=== PATIENT | female | born 1970 | race African-American/Black ===

== ENCOUNTER 2019-01-18 09:53 | Inpatient (IN) | payer MEDICAID, OTHER ==
[~2019-01-18] VITALS: Ht 182.9 cm; Wt 89.8 kg
[2019-01-18 10:42] LABS: BASOPHILS % 0.5 % (0.0-2.0); HEMATOCRIT. 38.7 % (36.0-48.0); HEMOGLOBIN. 12.8 g/dL (12.0-16.0); LYMPHOCYTES % 12.9 % (20.0-50.0); MEAN CORPUSCULAR HEMOGLOBIN 29.8 pg (28.0-32.0); MEAN CORPUSCULAR VOLUME 90.2 fL (81.0-99.0); MEAN PLATELET VOLUME 9.5 fl (7.4-10.4); MONOCYTES % 8.5 % (2.0-8.0); NEUTROPHILS % 77.1 % (40.0-76.0); PLATELET 233 x1000/uL (130-400); RED BLOOD CELL COUNT 4.29 mill/uL (4.2-5.4); RED CELL DISTRIBUTION WIDTH 13.1 % (11.6-14.6)
[2019-01-18] MEDS ORDERED: MORPHINE SULFATE 4 MG/ML CPJ (NOT FOR IM USE) IV ONE (10:45)
[2019-01-18] MEDS ORDERED: VANCOMYCIN 1 G PREMIX 200 ML IV ONE (10:45)
[2019-01-18] MEDS ORDERED: ONDANSETRON HCL 4MG/2ML INJ IV ONE (10:45)
[2019-01-18] MEDS ORDERED: PIPERACILLIN/TAZ 3.375G PREMIX 50 ML IV ONE (10:45)
[2019-01-18 10:48] LABS: CHLORIDE 100 mEq/L (98-107)
[2019-01-18 10:50] LABS: HCG SCREEN NEGATIVE
[2019-01-18] MEDS ORDERED: SODIUM CHLORIDE 0.9% 1,000 ML IV ONE (11:57)
[2019-01-18] MEDS ORDERED: DIPHENHYDRAMINE 50MG/ML VIAL IV ONE (13:15)
[2019-01-18] MEDS ORDERED: SODIUM CHLORIDE 0.45% 1,000 ML IV SCH (13:52)
[2019-01-18] MEDS ORDERED: CLONIDINE 0.1MG TABLET PO PRN (14:00)
[2019-01-18] MEDS ORDERED: ONDANSETRON HCL 4MG/2ML INJ IV PRN (14:00)
[2019-01-18] MEDS ORDERED: ACETAMINOPHEN 325MG TABLET PO PRN (14:00)
[2019-01-18] MEDS ORDERED: ENOXAPARIN 40MG/0.4ML SYR SUBCUT SCH (14:00)
[2019-01-18] MEDS ORDERED: LEVOFLOXACIN 500MG PREMIX 100 ML IV SCH ×2 (14:45→18:30)
[2019-01-18] MEDS: HYDROCODONE/ACETAMINOPHEN 5/325MG TABLET PO PRN ×2 (15:11→20:04)
[2019-01-18 17:44] VITALS: BP 129/91
[2019-01-18 20:00] VITALS: BP 118/76
[2019-01-18] MEDS ORDERED: ENOXAPARIN 30MG/0.3ML SYR SUBCUT SCH (21:00)
[2019-01-18] MEDS: LEVOFLOXACIN 500MG PREMIX 100 ML IV SCH (21:23)
[2019-01-18] MEDS: VANCOMYCIN 1 G PREMIX 200 ML IV SCH (22:43)
[2019-01-19] VITALS: BP 97/58
[2019-01-19 04:00] VITALS: BP 109/56
[2019-01-19] MEDS: HYDROCODONE/ACETAMINOPHEN 5/325MG TABLET PO PRN ×2 (06:16→12:38)
[2019-01-19 06:55] LABS: BASOPHILS % 0.8 % (0.0-2.0); EOSINOPHILS % 2.5 % (0.0-5.0); HEMATOCRIT. 36.2 % (36.0-48.0); HEMOGLOBIN. 11.8 g/dL (12.0-16.0); LYMPHOCYTES % 35.1 % (20.0-50.0); MEAN CORPUSCULAR HEMOGLOBIN 29.7 pg (28.0-32.0); MEAN CORPUSCULAR VOLUME 90.8 fL (81.0-99.0); MEAN PLATELET VOLUME 10.2 fl (7.4-10.4); MONOCYTES % 9.6 % (2.0-8.0); PLATELET 217 x1000/uL (130-400); RED BLOOD CELL COUNT 3.99 mill/uL (4.2-5.4)
[2019-01-19 07:35] LABS: CHLORIDE 106 mEq/L (98-107)
[2019-01-19 08:00] VITALS: BP 96/51
[2019-01-19] MEDS: ENOXAPARIN 40MG/0.4ML SYR SUBCUT SCH (09:33)
[2019-01-19] MEDS: VANCOMYCIN 1 G PREMIX 200 ML IV SCH (11:49)
[2019-01-19 12:00] VITALS: BP 100/56
[2019-01-19] MEDS ORDERED: FUROSEMIDE 40MG/4ML VIAL IVP NR (12:15)
[2019-01-19 16:00] VITALS: BP 100/63
[2019-01-19 20:00] VITALS: BP 90/50
[2019-01-19] MEDS: LEVOFLOXACIN 500MG PREMIX 100 ML IV SCH (20:31)
[2019-01-20] VITALS: BP 102/57
[2019-01-20] MEDS: HYDROCODONE/ACETAMINOPHEN 5/325MG TABLET PO PRN ×2 (01:31→12:16)
[2019-01-20] MEDS: VANCOMYCIN 1250MG in DEXTROSE 5% WATER 250ML IV SCH ×2 (02:40→10:24)
[2019-01-20 04:00] VITALS: BP 104/68
[2019-01-20 08:00] VITALS: BP 129/77
[2019-01-20] MEDS: ENOXAPARIN 40MG/0.4ML SYR SUBCUT SCH (09:15)
[2019-01-20 10:00] LABS: BASOPHILS % 0.5 % (0.0-2.0); EOSINOPHILS % 2.9 % (0.0-5.0); HEMATOCRIT. 38.9 % (36.0-48.0); HEMOGLOBIN. 12.6 g/dL (12.0-16.0); LYMPHOCYTES % 36.4 % (20.0-50.0); MEAN CORPUSCULAR HEMOGLOBIN 29.3 pg (28.0-32.0); MEAN CORPUSCULAR VOLUME 90.8 fL (81.0-99.0); MEAN PLATELET VOLUME 9.6 fl (7.4-10.4); MONOCYTES % 7.7 % (2.0-8.0); NEUTROPHILS % 52.5 % (40.0-76.0); PLATELET 246 x1000/uL (130-400); RED BLOOD CELL COUNT 4.28 mill/uL (4.2-5.4)
[2019-01-20 10:07] LABS: CHLORIDE 106 mEq/L (98-107)
[2019-01-20 12:00] VITALS: BP 122/66
[2019-01-20 12:49] VITALS: BP 122/66
== END 2019-01-20 16:18 | disposition home or self-care (01) | DRG 383 ==
LOC: ER 09:53 → 6EST 11:12 → EDBEDREQ 11:24 → EDBEDREQTM 11:24 → ENRESERV 14:53 → 6EST 17:15
PROVIDERS: ADMIT Hospitalist; ATTEND Hospitalist
DX: L03.116 Cellulitis of left lower limb (principal); E46 Unspecified protein-calorie malnutrition; E87.1 Hypo-osmolality and hyponatremia; E83.51 Hypocalcemia; F17.200 Nicotine dependence, unspecified, uncomplicated; F19.10 Other psychoactive substance abuse, uncomplicated; L03.115 Cellulitis of right lower limb; Z88.0 Allergy status to penicillin; Z71.6 Tobacco abuse counseling; Z88.9 Allergy status to unspecified drugs, medicaments and biological substances; Z68.26 Body mass index [BMI] 26.0-26.9, adult
CPT/HCPCS: 36415; 71045; 80048; 80202; 83605; 83880; 84484; 84703; 93005; 93970; 96365; 96368; 96375; 99285; 99406; J1200; J1650; J1940; J1956; J2270; J2405; J2543; J3370; J7030; J7060

== ENCOUNTER 2020-01-31 19:51 | Emergency (ER) | payer SELFPAY ==
[~2020-01-31] VITALS: Ht 182.9 cm; Wt 109.0 kg
[2020-01-31] MEDS ORDERED: IBUPROFEN 600MG TABLET PO ONE (22:30)
[2020-01-31] MEDS ORDERED: CEPHALEXIN 250MG CAPSULE PO ONE (22:30)
[2020-01-31 22:58] VITALS: BP 144/84
== END 2020-01-31 23:00 | disposition home or self-care (01) ==
LOC: ER 19:51
DX: L03.116 Cellulitis of left lower limb (principal); F14.10 Cocaine abuse, uncomplicated; Z91.048 Other nonmedicinal substance allergy status
CPT/HCPCS: 99283

== ENCOUNTER 2021-01-24 23:29 | Emergency (ER) | payer MEDICAID ==
[~2021-01-24] VITALS: Ht 182.9 cm; Wt 134.5 kg
[2021-01-25] MEDS ORDERED: KETOROLAC 60MG/2ML VIAL IM ONE (01:45)
[2021-01-25 02:27] VITALS: BP 153/94
== END 2021-01-25 02:27 | disposition home or self-care (01) ==
LOC: ER 23:47
DX: S81.802A Unspecified open wound, left lower leg, initial encounter (principal); R60.0 Localized edema; E66.9 Obesity, unspecified; Z68.41 Body mass index [BMI] 40.0-44.9, adult; F17.210 Nicotine dependence, cigarettes, uncomplicated; Z71.6 Tobacco abuse counseling; Z91.09 Other allergy status, other than to drugs and biological substances; X58.XXXA Exposure to other specified factors, initial encounter; Y93.89 Activity, other specified; Y92.018 Other place in single-family (private) house as the place of occurrence of the external cause
CPT/HCPCS: 81025; 96372; 99283; 99406; A4217; J1885; Z7610